=== PATIENT | male | born 1995 | race Caucasian/White ===

== ENCOUNTER 2016-06-13 23:04 | Emergency (ER) | payer BC ==
[~2016-06-13] VITALS: Ht 177.8 cm; Wt 72.0 kg
[2016-06-14] MEDS ORDERED: TETANUS, DIPHTHERIA, PERTUSSIS VAC/PF 0.5ML (>7YR OLD) IM ONE (00:30)
[2016-06-14] MEDS ORDERED: ONDANSETRON 4MG ODT PO ONE ×2 (00:30→02:00)
[2016-06-14] MEDS ORDERED: BACITRACIN ZINC OINT UDPKT TOP ONE (00:30)
[2016-06-14] MEDS ORDERED: MORPHINE SULFATE 10 MG/ML CPJ IM ONE ×2 (00:30→02:00)
[2016-06-14] MEDS ORDERED: HYDROCODONE/APAP 7.5/325MG 1 TAB TABLET PO ONE (01:45)
[2016-06-14] MEDS ORDERED: IBUPROFEN 600MG TABLET PO ONE (05:15)
[2016-06-14 05:36] VITALS: BP 132/74
== END 2016-06-14 06:35 | disposition home or self-care (01) ==
LOC: ER 23:15
DX: S06.9X9A Unspecified intracranial injury with loss of consciousness of unspecified duration, initial encounter (principal); S09.93XA Unspecified injury of face, initial encounter; Z88.1 Allergy status to other antibiotic agents; Y04.0XXA Assault by unarmed brawl or fight, initial encounter; Y93.89 Activity, other specified; Y92.488 Other paved roadways as the place of occurrence of the external cause
CPT/HCPCS: 36415; 70450; 70486; 72125; 90471; 90715; 96372; 99285; G0482; J2270; Q0162